=== PATIENT | female | born 1955 | race Two or more races ===

== ENCOUNTER 2022-01-11 23:31 | Emergency (ER) | payer MEDICARE, MEDICAID ==
[~2022-01-11] VITALS: Ht 162.6 cm; Wt 60.8 kg
[2022-01-11 23:32] VITALS: BP 153/56
== END 2022-01-12 03:27 | disposition home or self-care (01) ==
LOC: ER 23:31
DX: S83.92XA Sprain of unspecified site of left knee, initial encounter (principal); X50.1XXA Overexertion from prolonged static or awkward postures, initial encounter; Y93.89 Activity, other specified; Y92.89 Other specified places as the place of occurrence of the external cause; Y99.8 Other external cause status

== ENCOUNTER 2023-01-26 17:34 | Emergency (ER) | payer MEDICARE, MEDICAID ==
[~2023-01-26] VITALS: Ht 162.6 cm; Wt 68.0 kg
[2023-01-26 17:34] VITALS: BP 129/79
[2023-01-26 18:37] LABS: Basophils # (auto) 0 10 ^3/uL (0-0.2); Basophils % (auto) 0.5 % (0.0-2.0); Eosinophils # (auto) 0.1 10 ^3/uL (0-0.8); Eosinophils % (auto) 1.4 % (0.0-7.0); Hematocrit 43.3 % (36.0-46.0); Hemoglobin 15.3 g/dL (12.2-16.2); Lymphocytes # (auto) 2.2 10 ^3/uL (0.4-5.4); Lymphocytes % (auto) 31.5 % (10.0-50.0); Mean Corpuscular Hemoglobin 31.6 pg (28.0-32.0); Mean Corpuscular Hgb Conc. 35.3 g/dL (32.0-36.0); Mean Corpuscular Volume 89.4 fL (80.0-100.0); Monocytes # (auto) 0.5 10 ^3/uL (0-1.3); Monocytes % (auto) 7.4 % (0.0-12.0); Neutrophils # (auto) 4.2 10 ^3/uL (1.6-8.6); Neutrophils % (auto) 59.2 % (37.0-80.0); Nucleated Red Blood Cells % 0.1 %; Red Blood Cells 4.84 10^6/uL (4.0-5.20)
[2023-01-26 19:01] LABS: Albumin 3.8 g/dL (3.4-5.0); BUN/Creatinine Ratio 23.7 (10.0-20.0); Calcium 9.8 mg/dL (8.5-10.1)
[2023-01-26 19:03] LABS: Bilirubin, Total 0.8 mg/dL (0.2-1.0); Total Protein 8.4 g/dL (6.4-8.2)
[2023-01-27] MEDS ORDERED: METR500T PO (03:50)
[2023-01-27] MEDS ORDERED: CIPR-173 PO (03:50)
== END 2023-01-27 06:10 | disposition home or self-care (01) ==
LOC: ER 17:34
DX: K52.9 Noninfective gastroenteritis and colitis, unspecified (principal)
CPT/HCPCS: 36415; 71045; 74176; 80053; 83690; 84484; 85025

== ENCOUNTER 2023-11-02 22:28 | Emergency (ER) | payer OTHER ==
[~2023-11-02] VITALS: Ht 162.6 cm; Wt 63.0 kg
[~2023-11-02 22:28] MED LIST: CIPR-173 PO; METR500T PO
[2023-11-03 00:47] LABS: COVID19 ANTIGEN SOFIA FIA NEGATIVE (NEGATIVE); Rapid Influenza A Negative (Negative); Rapid Influenza B Negative (Negative)
[2023-11-03] MEDS ORDERED: ACET500T58 PO (02:19)
[2023-11-03] MEDS ORDERED: AMOX875T4 PO (02:19)
[2023-11-03 02:27] VITALS: BP 113/66; TEMP 98.4; O2SAT 96
[2023-11-03 03:04] VITALS: PULSE 78; RESP 17
== END 2023-11-03 03:05 | disposition home or self-care (01) ==
LOC: ER 22:28
DX: J06.9 Acute upper respiratory infection, unspecified (principal); Z20.822 Contact with and (suspected) exposure to COVID-19
CPT/HCPCS: 36415; 87426; 87804

== ENCOUNTER 2024-09-05 17:32 | Emergency (ER) | payer OTHER ==
[~2024-09-05] VITALS: Ht 154.9 cm; Wt 58.4 kg
[~2024-09-05 17:32] MED LIST changes: +ACET500T58 PO; +AMOX875T4 PO
[2024-09-05 18:44] VITALS: BP 140/86; PULSE 90; RESP 16; O2SAT 97
--- NOTE | 2024-09-05 19:02 | ED.PDOC ---
HPI (NEURO) HPI Comments 69 year old female presents to ER with complaints of headache x 3 months. Patient states she has been intermittent right sided headache x 3 months that got worse x1 day prompting her to come to ER for further evaluation. She rates her current pain a 10/10 to right side of forehead with radiation towards right occipital scalp. Notes she has been taking Advil for pain with slight relief. Patient presents to ER ambulatory on arrival, alert and oriented x4, with steady gait, in no distress. Denies fever, headache, recent illness, nausea/vomiting, numbness/tingling, vision changes, head injury, leg pain or any further symptoms/complaints Chief Complaint: Headache Time Seen by MD: 18:09 Primary Care Provider: UNKNOWN Reviewed Notes: Nurses Notes, Medications, Allergies Information Source: Patient Mode of Arrival: Ambulatory Past Medical History PAST MEDICAL HISTORY: Denies Surgical History: Denies all surgeries BLADE GRINDER History: Denies all BLADE GRINDER Hx Family History Family History: Unknown Social History Smoker: Non-Smoker Alcohol: Denies ETOH Use Drugs: Denies Drug Use Lives In: Home Constitutional: denies: chills, diaphoresis, fatigue, fever, malaise, sweats, weakness, others EENTM: denies: blurred vision, double vision, ear bleeding, ear discharge, ear drainage, ear pain, ear ringing, eye pain, eye redness, hearing loss, mouth pain, mouth swelling, nasal discharge, nose bleeding, nose congestion, nose pain, photophobia, tearing, throat pain, throat swelling, voice changes, others Respiratory: denies: cough, hemoptysis, orthopnea, SOB at rest, shortness of breath, SOB with excertion, stridor, wheezing, others Cardiovascular: denies: chest pain, dizzy spells, diaphoresis, Dyspnea on exertion, edema, irregular heart beat, left arm pain, lightheadedness, palpitations, PND, syncope, others Gastrointestinal: denies: abdomen distended, abdominal pain, blood streaked bowels, constipated, diarrhea, dysphagia, difficulty swallowing, hematemesis, melena, nausea, poor appetite, poor fluid intake, rectal bleeding, rectal pain, vomiting, others Genitourinary: denies: abnormal vagina bleeding, burning, dyspareunia, dysuria, flank pain, frequency, hematuria, incontinence, pain, , vagina discharge, urgency, others Neurological: reports: others (As stated in HPI) Musculoskeletal: denies: back pain, gout, joint pain, joint swelling, muscle pain, muscle stiffness, neck pain, others Integumetry: denies: bruises, change in color, change in hair/nails, dryness, laceration, lesions, lumps, rash, wounds, others Allergic/Immunocompromised: denies: Difficulty Healing, Frequent Infections, Hives, Itching, others Hematologic/Lymphatic: denies: anemia, blood clots, easy bleeding, easy bruising, swollen glands, others Endocrine: denies: excessive hunger, excessive sweating, excessive thirst, excessive urination, flushing, intolerance to cold, intolerance to heat, unexplained weight gain, unexplained weight loss, others Psychiatric: denies: anxiety, bipolar disorder, depression, hopeless, panic disorder, schizophrenia, sleepless, suicidal, others Physical Exam General Appearance: No Apparent Distress HEENT: Normal ENT Inspection, PERRL/EOMI, Pharynx Normal, TMs Normal Neck: Full Range of Motion, Non-Tender, Normal Respiratory: Chest Non-Tender, Lungs Clear, No Accessory Muscle Use, No Respiratory Distress, Normal Breath Sounds Cardiovascular: No Murmur, No Gallop, Regular Rate/Rhythm Breast Exam: Deferred Gastrointestinal: NOT DONE Genitalia: Deferred Pelvic: Deferred Rectal: Deferred Extremities: Normal capillary refill, Normal range of motion Neurologic: Alert, wastewater superintendent II-XII nml as Tested, No Motor Deficits, Normal Affect, Normal Mood, No Sensory Deficits Cerebellar Function: Normal Reflexes: Normal Skin: Dry, Normal Color, Warm Lymphatic: No Adenopathy Was a procedure done? Was a procedure done?: No Sedation Sedation?: No Differential Diagnosis (SZ) Headache: Subarachnoid Hemorrhage, Subdural Hemorrhage, Mass Lesion, Trigeminal Neuralgia X-Ray, Labs, Meds, VS Vital Signs Date Time Temp Pulse Resp B/P (MAP) Pulse Ox O2 Delivery O2 Flow Rate FiO2 09/05/24 19:05 98.9 09/05/24 18:44 98.9 90 16 140/86 (104) 97 98.9 09/05/24 18:44 90 16 97 Room Air 09/05/24 17:46 99.3 93 16 145/89 (107) 96 Current Medications Medications (Trade) Dose Ordered Sig/Colleen Route Start Time Stop Time Status Last Admin Acetaminophen (Tylenol Tablet) 650 mg ONCE ONCE PO 09/05/24 19:00 09/05/24 19:01 DC 09/05/24 19:05 PATIENT: GLORIA SIMONS ACCT: [id number] UNIT: [id number] : 1955 LOC: ER ROOM / BED: / AGE / SEX: 69 / F ADM STATUS: REG ER SERVICE [id number] ORDERING PHYSICIAN: RAJWINDER GARZA PROCEDURE(s): HWOCT - HEAD WITHOUT CONTRAST REASON: headache ORDER NUMBER(s): [id number], ACCESSION NUMBER(s): [id number] EXAM: CT HEAD WITHOUT CONTRAST INDICATION: headache TECHNIQUE: CT of the head without intravenous contrast. Radiation Dose Information: CT Dose: CTDI volume is 53.99 mGy. Dose-length product is 863.9 mGy*cm The dose indicators for CT are the volume Computed Tomography (CT) Dose Index (CTDIvol) and the Dose Length Product (DLP), and are measured in units of mGy and mGy-cm, respectively. These indicators are not patient dose, but values gene rated from the CT scanner acquisition factors. The report includes radiation exposure data for exposures received during this examination. COMPARISON: None FINDINGS: There is no evidence of acute intracranial hemorrhage, extra-axial collection, mass effect, midline shift, herniation or hydrocephalus. The ventricles, sulci and cisterns are age appropriate. The soler-white differentiation is intact. Patchy periventricular and subcortical white matter hypoattenuation is nonspecific but may be related to small vessel ischemic disease. The visualized paranasal sinuses and mastoid air cells are clear. The surrounding soft tissues and osseous structures are unremarkable. IMPRESSION: 1. No acute intracranial hemorrhage. 2. No CT findings of territorial ischemia. 3. No CT findings of paranasal sinus disease. ATED BY: JEIMY NAVARRO Jr., DO DICTATED DATE/TIME: 09/05/241953 SIGNED BY: JEIMY NAVARRO Jr., SIGNED DATE/TIME: 09/05/241953 CC: Tylenol [address] head without contrast reviewed Patient reported improvement in symptoms and in no distress prior to discharge Advised to drink plenty of fluids Advised to follow up with PCP in 1-2 days Patient verbalized understanding and agreeable with current plan of care Advised to return to ER immediately if symptoms worsen Images Reviewed?: Images reviewed and evaluated by me Time of 1ST Reevaluation: 18:44 Reevaluation 1ST: N/A Patient Education/Counseling: Diagnosis, Treatment, Prognosis, Need For Follow Up Family Education/Counseling: No Family Present Departure 1 Departure Time of Disposition: 19:00 Impression: Primary Impression: Tension headache Disposition: HOME / SELF CARE / HOMELESS Condition: Stable e-Prescriptions Acetaminophen W/ Codeine (Tylenol W/Cod #3) 1 Tab Tb 1 TAB PO QIDP, #10 TAB 0 Refills Prov: RAJWINDER GARZA 09/05/24 Discharged With: Self Critical Care Note Critical Care Time?: No Stability Stability form required: No Heart Score Heart Score: Heart Score Response (Comments) Value History N/A 0 EKG N/A 0 Age N/A 0 Risk Factors N/A 0 Troponin N/A 0 Total 0 RAJWINDER GARZA Sep 05, 2024 19:02
[2024-09-05 19:05] VITALS: TEMP 98.9
[2024-09-05] MEDS: ACETAMINOPHEN 325 MG TAB PO ONE (19:05)
--- NOTE | 2024-09-05 19:57 | DVH ---
EXAM: CT HEAD WITHOUT CONTRAST INDICATION: headache TECHNIQUE: CT of the head without intravenous contrast. Radiation Dose Information: CT Dose: CTDI volume is 53.99 mGy. Dose-length product is 863.9 mGy*cm The dose indicators for CT are the volume Computed Tomography (CT) Dose Index (CTDIvol) and the Dose Length Product (DLP), and are measured in units of mGy and mGy-cm, respectively. These indicators are not patient dose, but values generated from the CT scanner acquisition factors. The report includes radiation exposure data for exposures received during this examination. COMPARISON: None FINDINGS: There is no evidence of acute intracranial hemorrhage, extra-axial collection, mass effect, midline s hift, herniation or hydrocephalus. The ventricles, sulci and cisterns are age appropriate. The soler-white differentiation is intact. Patchy periventricular and subcortical white matter hypoattenuation is nonspecific but may be related to small vessel ischemic disease. The visualized paranasal sinuses and mastoid air cells are clear. The surrounding soft tissues and osseous structures are unremarkable. IMPRESSION: 1. No acute intracranial hemorrhage. 2. No CT findings of territorial ischemia. 3. No CT findings of paranasal sinus disease.
[2024-09-05] MEDS ORDERED: ACE3T PO (20:01)
== END 2024-09-05 20:04 | disposition home or self-care (01) ==
LOC: ER 17:32
DX: G44.209 Tension-type headache, unspecified, not intractable (principal)
CPT/HCPCS: 70450